=== PATIENT | male | born 1995 | race Caucasian/White ===

== ENCOUNTER 2022-12-31 01:44 | Emergency (ER) | payer MEDICAID ==
[~2022-12-31] VITALS: Ht 170.2 cm; Wt 100.0 kg
[2022-12-31 02:00] VITALS: O2SAT 98
[2022-12-31 02:45] VITALS: BP 150/88; PULSE 98; RESP 20; TEMP 98
== END 2022-12-31 02:45 | disposition home or self-care (01) ==
LOC: ER 01:44
DX: F43.9 Reaction to severe stress, unspecified (principal); F20.9 Schizophrenia, unspecified
CPT/HCPCS: 99283

== ENCOUNTER 2023-01-13 18:10 | Emergency (ER) | payer MEDICAID ==
[~2023-01-13] VITALS: Ht 172.7 cm; Wt 91.0 kg
[2023-01-13 18:15] VITALS: BP 141/71; PULSE 107; RESP 14; TEMP 98.4; O2SAT 95
== END 2023-01-13 19:56 | disposition home or self-care (01) ==
LOC: ER 18:10
DX: R51.9 Headache, unspecified (principal); F41.9 Anxiety disorder, unspecified; Z68.30 Body mass index [BMI] 30.0-30.9, adult
CPT/HCPCS: 99283